=== PATIENT | female | born 1990 | race African-American/Black ===

== ENCOUNTER 2017-06-15 20:03 | Emergency (ER) | payer MEDICAID, OTHER ==
[~2017-06-15] VITALS: Ht 165.1 cm; Wt 76.8 kg
[~2017-06-15 20:03] MED LIST: IBUP-779 PO; IRON-15 PO; PREN-88 PO
[2017-06-15 20:46] VITALS: BP 113/63
== END 2017-06-15 22:22 | disposition left against medical advice (07) ==
LOC: ER 20:03
DX: Z53.21 Procedure and treatment not carried out due to patient leaving prior to being seen by health care provider (principal)

== ENCOUNTER 2018-11-24 22:02 | Emergency (ER) | payer MEDICAID, OTHER ==
[~2018-11-24] VITALS: Ht 167.6 cm; Wt 73.0 kg
[2018-11-24] MEDS ORDERED: ACETAMINOPHEN 325MG TABLET PO PRN (22:15)
[2018-11-24 22:37] LABS: BASOPHILS % 1.1 % (0.0-2.0); EOSINOPHILS % 0.4 % (0.0-5.0); LYMPHOCYTES % 24.5 % (20.0-50.0); MEAN CORPUSCULAR HEMOGLOBIN 32.5 pg (28.0-32.0); MEAN CORPUSCULAR VOLUME 97.7 fL (81.0-99.0); MEAN PLATELET VOLUME 8.3 fl (7.4-10.4); MONOCYTES % 6.8 % (2.0-8.0); NEUTROPHILS % 67.2 % (40.0-76.0); PLATELET 272 x1000/uL (130-400); RED CELL DISTRIBUTION WIDTH 12.8 % (11.6-14.6)
[2018-11-24 22:42] LABS: CHLORIDE 101 mEq/L (98-107)
[2018-11-24 23:06] LABS: B-HCG QUANTITATIVE 2576 mIU/mL (<3)
[2018-11-25 00:15] VITALS: BP 102/58
== END 2018-11-25 00:33 | disposition home or self-care (01) ==
LOC: ER 22:02
DX: O20.0 Threatened abortion (principal); Z3A.01 Less than 8 weeks gestation of pregnancy; Z79.899 Other long term (current) drug therapy
CPT/HCPCS: 36415; 76801; 81025; 84702; 86850; 86900; 99284